=== PATIENT | female | born 1955 | race Asian ===

== ENCOUNTER 2023-12-07 20:16 | Inpatient (IN) | payer MEDICARE, MEDICAID ==
[~2023-12-07] VITALS: Ht 160 cm; Wt 85.7 kg
[2023-12-07] MEDS: SODIUM CHLORIDE 0.9% 1,000 ML IV ONE (22:38)
[2023-12-07 23:00] LABS: EOSINOPHILS % 0.3 % (0.0-5.0); HEMATOCRIT. 43.2 % (36.0-48.0); HEMOGLOBIN. 14.6 g/dL (12.0-16.0); LYMPHOCYTES % 29.8 % (20.0-50.0); MEAN CORPUSCULAR HEMOGLOBIN 30.5 pg (28.0-32.0); MEAN CORPUSCULAR HGB CONC 33.9 g/dL (31.0-37.0); MEAN CORPUSCULAR VOLUME 90.2 fL (81.0-99.0); MEAN PLATELET VOLUME 6.3 fl (7.4-10.4); NEUTROPHILS % 59.9 % (40.0-76.0); PLATELET 354 x1000/uL (130-400); RED BLOOD CELL COUNT 4.79 mill/uL (4.2-5.4); RED CELL DISTRIBUTION WIDTH 14.8 % (11.6-14.6)
[2023-12-07 23:15] LABS: CHLORIDE 85 mEq/L (98-107); POTASSIUM 4.7 mEq/L (3.5-5.1); SODIUM 122 mEq/L (136-145)
[2023-12-07 23:16] LABS: CALCIUM 9.1 mg/dL (8.7-10.4); CARBON DIOXIDE 32 mEq/L (21-32)
[2023-12-07 23:21] LABS: CREATININE 0.6 mg/dL (0.6-1.0); GLUCOSE 98 mg/dL (70-105); UREA NITROGEN BLOOD 8 mg/dL (9-23)
[2023-12-07 23:23] LABS: ALANINE AMINOTRANSFERASE < 7 IU/L (10-49); ALBUMIN 4.2 g/dL (3.2-4.8); ASPARTATE AMINOTRANSFERASE 16 IU/L (<34); BILIRUBIN DIRECT 0.1 mg/dL (<=3.0); BILIRUBIN TOTAL 0.4 mg/dL (0.1-1.0); PROTEIN TOTAL 6.9 g/dL (6.0-8.3); TROPONIN I HIGH SENSITIVITY 8 ng/L (3.0-34)
[2023-12-08] MEDS: CEFTRIAXONE 1GM/50ML 50 ML IV ONE (00:06)
[2023-12-08 00:09] LABS: TROPONIN I HIGH SENSITIVITY 7 ng/L (3.0-34)
[2023-12-08] MEDS: AZITHROMYCIN 500MG/250ML 250 ML IV ONE (00:46)
[2023-12-08 08:28] LABS: BASOPHILS % 0.3 % (0.0-2.0); EOSINOPHILS % 0.5 % (0.0-5.0); HEMATOCRIT. 43.2 % (36.0-48.0); HEMOGLOBIN. 14.6 g/dL (12.0-16.0); LYMPHOCYTES % 29.6 % (20.0-50.0); MEAN CORPUSCULAR HEMOGLOBIN 30.6 pg (28.0-32.0); MEAN CORPUSCULAR HGB CONC 33.7 g/dL (31.0-37.0); MEAN CORPUSCULAR VOLUME 90.7 fL (81.0-99.0); MONOCYTES % 9.7 % (2.0-8.0); NEUTROPHILS % 59.9 % (40.0-76.0); PLATELET 369 x1000/uL (130-400); RED BLOOD CELL COUNT 4.77 mill/uL (4.2-5.4); RED CELL DISTRIBUTION WIDTH 14.6 % (11.6-14.6)
[2023-12-08 08:32] LABS: CHLORIDE 89 mEq/L (98-107); POTASSIUM 4.6 mEq/L (3.5-5.1); SODIUM 124 mEq/L (136-145)
[2023-12-08 08:33] LABS: CALCIUM 8.9 mg/dL (8.7-10.4); CARBON DIOXIDE 33 mEq/L (21-32)
[2023-12-08 08:34] LABS: D-DIMER 0.54 mg/L FEU (<0.50); INR 1.1; PROTHROMBIN TIME 12.2 sec (9.6-11.0)
[2023-12-08 08:38] LABS: CREATININE 0.5 mg/dL (0.6-1.0); GLUCOSE 105 mg/dL (70-105); UREA NITROGEN BLOOD 7 mg/dL (9-23)
[2023-12-08 08:45] LABS: T4 FREE 1.49 ng/dL (0.89-1.76); THYROID STIMULATING HORMONE 1.11 uIU/mL (0.55-4.78)
[2023-12-08] MEDS: SODIUM CHLORIDE 0.9% 1,000 ML IV SCH (09:12)
[2023-12-08] MEDS ORDERED: ACETAMINOPHEN 325MG TABLET PO PRN (10:30)
[2023-12-08] MEDS ORDERED: DIPHENHYDRAMINE 50MG/ML VIAL IV PRN (10:30)
[2023-12-08] MEDS ORDERED: ONDANSETRON HCL 4MG/2ML INJ IV PRN (10:30)
[2023-12-08 11:03] VITALS: BP 158/49; PULSE 57; RESP 18; TEMP 95.9
[2023-12-08 12:38] VITALS: BP 158/49; PULSE 60; RESP 16; TEMP 96.8
[2023-12-08] MEDS: FUROSEMIDE 40MG/4ML VIAL IV SCH (13:42)
[2023-12-08 16:00] VITALS: BP 119/44; PULSE 60; RESP 18; TEMP 98
[2023-12-08 20:00] VITALS: BP 140/68; PULSE 72; RESP 19; TEMP 97.4
[2023-12-09] VITALS: BP 109/55; PULSE 67; RESP 19; TEMP 97.5
[2023-12-09 04:00] VITALS: BP 147/70; PULSE 74; RESP 20; TEMP 97.1
[2023-12-09 07:40] LABS: CHLORIDE 91 mEq/L (98-107); POTASSIUM 4.2 mEq/L (3.5-5.1); SODIUM 131 mEq/L (136-145)
[2023-12-09 07:41] LABS: CALCIUM 9.3 mg/dL (8.7-10.4); CARBON DIOXIDE 35 mEq/L (21-32)
[2023-12-09 07:43] LABS: BASOPHILS % 0.8 % (0.0-2.0); EOSINOPHILS % 0.6 % (0.0-5.0); HEMATOCRIT. 44.5 % (36.0-48.0); HEMOGLOBIN. 14.9 g/dL (12.0-16.0); LYMPHOCYTES % 19.2 % (20.0-50.0); MEAN CORPUSCULAR HEMOGLOBIN 30.7 pg (28.0-32.0); MEAN CORPUSCULAR HGB CONC 33.4 g/dL (31.0-37.0); MEAN CORPUSCULAR VOLUME 91.8 fL (81.0-99.0); MEAN PLATELET VOLUME 6.4 fl (7.4-10.4); MONOCYTES % 10.5 % (2.0-8.0); NEUTROPHILS % 68.9 % (40.0-76.0); PLATELET 360 x1000/uL (130-400); RED BLOOD CELL COUNT 4.85 mill/uL (4.2-5.4); RED CELL DISTRIBUTION WIDTH 15.3 % (11.6-14.6); WHITE BLOOD COUNT 7.2 x1000/uL (4.5-11.0)
[2023-12-09 07:46] LABS: CREATININE 0.7 mg/dL (0.6-1.0); GLUCOSE 107 mg/dL (70-105); UREA NITROGEN BLOOD 12 mg/dL (9-23)
[2023-12-09 08:00] VITALS: BP 136/73; PULSE 79; RESP 18; TEMP 97
[2023-12-09 12:00] VITALS: BP 138/76; PULSE 82; RESP 18; TEMP 97.7
[2023-12-09 13:11] LABS: CLARITY URINE CLEAR (CLEAR); COLOR URINE YELLOW (YELLOW); GLUCOSE URINE NEGATIVE (NEGATIVE); KETONES URINE NEGATIVE (NEGATIVE); LEUKOCYTE ESTERASE URINE NEGATIVE (NEGATIVE); NITRITE URINE NEGATIVE (NEGATIVE); OCCULT BLOOD URINE NEGATIVE (NEGATIVE); PROTEIN URINE NEGATIVE (NEGATIVE); SPECIFIC GRAVITY URINE 1.004 (1.005-1.030); UROBILINOGEN URINE 0.2 E.U./dL (0.2-1.0)
[2023-12-09 16:00] VITALS: BP 134/79; PULSE 92; RESP 18; TEMP 97.6
[2023-12-09 20:00] VITALS: BP 169/68; PULSE 92; RESP 16; TEMP 97.7
[2023-12-10] VITALS (8 sets, daily range): BP systolic 121–158; BP diastolic 51–105; PULSE 70–93; RESP 16–19; TEMP 96–97.9
[2023-12-11] VITALS: BP 148/78; PULSE 86; RESP 19; TEMP 98.4
[2023-12-11 04:00] VITALS: BP 147/72; PULSE 74; RESP 19; TEMP 97.5
[2023-12-11 05:46] VITALS: BP 147/72; PULSE 74; TEMP 97.5; O2SAT 95
[2023-12-11 08:00] VITALS: BP 127/63; PULSE 78; RESP 18; TEMP 97.3
== END 2023-12-11 09:45 | DRG 640 ==
LOC: ER 20:16 → 7EST 12-08 00:03
PROVIDERS: ADMIT Internal Medicine; ATTEND Internal Medicine
DX: E87.1 Hypo-osmolality and hyponatremia (principal); J96.01 Acute respiratory failure with hypoxia; J44.1 Chronic obstructive pulmonary disease with (acute) exacerbation; K42.9 Umbilical hernia without obstruction or gangrene; E11.9 Type 2 diabetes mellitus without complications; I10 Essential (primary) hypertension; R00.1 Bradycardia, unspecified; E87.8 Other disorders of electrolyte and fluid balance, not elsewhere classified; F20.9 Schizophrenia, unspecified; K21.9 Gastro-esophageal reflux disease without esophagitis
CPT/HCPCS: 36415; 71045; 80048; 80076; 81003; 82533; 83605; 83880; 83930; 83935; 84295; 84439; 84443; 84481; 84484; 85025; 85379; 93005; 99291; J0456; J0696; J1940; J7030

== ENCOUNTER 2024-01-22 18:36 | Inpatient (IN) | payer MEDICARE, MEDICAID ==
[~2024-01-22] VITALS: Ht 160 cm; Wt 89.4 kg
[2024-01-22 18:40] VITALS: RESP 26
[2024-01-22] MEDS: ASPIRIN 81MG TABLET PO ONE (18:58)
[2024-01-22] MEDS: METHYLPREDNISOLONE SOD SUCC 125MG/2ML (ACT-O-VIAL) IV STA (18:58)
[2024-01-22 19:06] LABS: CARBON DIOXIDE 26 mEq/L (21-32); CHLORIDE 85 mEq/L (98-107); POTASSIUM 5.9 mEq/L (3.5-5.1)
[2024-01-22 19:07] LABS: CALCIUM 7.7 mg/dL (8.7-10.4)
[2024-01-22 19:11] LABS: CREATININE 0.6 mg/dL (0.6-1.0)
[2024-01-22 19:12] LABS: GLUCOSE 156 mg/dL (70-105); TROPONIN I HIGH SENSITIVITY 10 ng/L (3.0-34); UREA NITROGEN BLOOD 13 mg/dL (9-23)
[2024-01-22 19:14] LABS: ALANINE AMINOTRANSFERASE 18 IU/L (10-49); ALBUMIN 3.8 g/dL (3.2-4.8); ASPARTATE AMINOTRANSFERASE 46 IU/L (<34); BILIRUBIN DIRECT 0.1 mg/dL (<=3.0); BILIRUBIN TOTAL 0.4 mg/dL (0.1-1.0)
[2024-01-22 19:16] LABS: BG BASE EXCESS 3.4 mmol/L (-2.0-3.0); BG CARBOXYHEMOGLOBIN 5.4 % (0.5-1.5); BG DEOXYHEMOGLOBIN 0.3 % (0.0-5.0); BG FRACTION INSPIRED OXYGEN 100; BG HCO3 ACT 33.7 mmol/L (21.0-28.0); BG OXYGEN SATURATION 99.7 % (94.0-98.0); BG OXYHEMOGLOBIN 94.3 % (94.0-98.0); BG PCO2 78.9 mmHg (32.0-45.0); BG PH 7.249 (7.350-7.450); BG PO2 423.7 mmHg (83.0-108.0); BG SAMPLE SITE RIGHT RADIAL; BG VENT MODE MASK - BIPAP
[2024-01-22 19:22] VITALS: RESP 22
[2024-01-22 19:26] LABS: SODIUM 115 mEq/L (136-145)
[2024-01-22 19:54] VITALS: RESP 21
[2024-01-22] MEDS: IPRATROPIUM BROMIDE (0.02%) 0.5MG/2.5ML NEB HHN STA (19:54)
[2024-01-22] MEDS: ALBUTEROL (0.083%) 2.5MG/3ML NEB HHN STA (19:54)
[2024-01-22 20:14] LABS: INR 1.1; PARTIAL THROMBOPLASTIN TIME 27.2 sec (23.4-31.0); PROTHROMBIN TIME 12.4 sec (9.6-11.0)
[2024-01-22 20:23] LABS: BASOPHILS % 0.2 % (0.0-2.0); EOSINOPHILS % 0.2 % (0.0-5.0); HEMATOCRIT. 45.2 % (36.0-48.0); HEMOGLOBIN. 14.9 g/dL (12.0-16.0); LYMPHOCYTES % 10.5 % (20.0-50.0); MEAN CORPUSCULAR HEMOGLOBIN 28.5 pg (28.0-32.0); MEAN CORPUSCULAR VOLUME 86.5 fL (81.0-99.0); MEAN PLATELET VOLUME 6.2 fl (7.4-10.4); MONOCYTES % 4.9 % (2.0-8.0); NEUTROPHILS % 84.2 % (40.0-76.0); PLATELET 344 x1000/uL (130-400); RED BLOOD CELL COUNT 5.23 mill/uL (4.2-5.4); RED CELL DISTRIBUTION WIDTH 14.3 % (11.6-14.6)
[2024-01-22 20:43] LABS: BG BASE EXCESS 5.1 mmol/L (-2.0-3.0); BG CARBOXYHEMOGLOBIN 4.5 % (0.5-1.5); BG DEOXYHEMOGLOBIN 0.9 % (0.0-5.0); BG FRACTION INSPIRED OXYGEN 50; BG HCO3 ACT 36.1 mmol/L (21.0-28.0); BG OXYGEN SATURATION 99.1 % (94.0-98.0); BG OXYHEMOGLOBIN 94.6 % (94.0-98.0); BG PCO2 84.5 mmHg (32.0-45.0); BG PH 7.249 (7.350-7.450); BG PO2 152.6 mmHg (83.0-108.0); BG SAMPLE SITE RIGHT RADIAL; BG TOTAL HEMOGLOBIN 16.4 g/dL (12.0-16.0); BG VENT MODE MASK - BIPAP
[2024-01-22 20:45] VITALS: RESP 22
[2024-01-22] MEDS ORDERED: PROPOFOL 10MG/ML 100ML 100 ML IV STA (20:48)
[2024-01-22] MEDS ORDERED: ETOMIDATE 2MG/ML 10ML VIAL IV ONE (21:00)
[2024-01-22] MEDS ORDERED: SUCCINYLCHOLINE CHLORIDE 200MG/10ML IV ONE (21:00)
[2024-01-22] MEDS ORDERED: ACETAMINOPHEN 325MG TABLET PO PRN (21:30)
[2024-01-22] MEDS ORDERED: DIPHENHYDRAMINE 50MG/ML VIAL IV PRN (21:30)
[2024-01-22] MEDS ORDERED: ENOXAPARIN 40MG/0.4ML SYR SUBCUT SCH (21:30)
[2024-01-22] MEDS ORDERED: NA PHOS,M-B/NA PHOS,DI-BA ENEMA 118ML PR PRN (21:30)
[2024-01-22] MEDS ORDERED: INSULIN REGULAR (HUMULIN R) 1000UNITS/10ML VIAL IV ONE (21:30)
[2024-01-22] MEDS ORDERED: MAGNESIUM/ALUMINUM HYDROXIDE/SIMETHICONE 30ML UDC PO PRN (21:30)
[2024-01-22] MEDS ORDERED: DEXTROSE 50% WATER 50ML SYRINGE IV ONE (21:30)
[2024-01-22] MEDS ORDERED: SODIUM CHLORIDE 0.9% 1,000 ML IV SCH (21:30)
[2024-01-22] MEDS ORDERED: ONDANSETRON HCL 4MG/2ML INJ IV PRN (21:30)
[2024-01-22] MEDS ORDERED: PROPOFOL 10MG/ML 100ML 100 ML IV PRN (21:45)
[2024-01-22] MEDS: SODIUM CHLORIDE 3% 120 ML IV NR (22:03)
[2024-01-22] MEDS: MONTELUKAST SODIUM 10MG TABLET PO SCH (22:04)
[2024-01-22] MEDS: LORATADINE 10MG TABLET PO SCH (22:04)
[2024-01-22] MEDS: FAMOTIDINE 20MG/2ML VIAL IV SCH (22:04)
[2024-01-22] MEDS: SODIUM POLYSTYRENE SULFONATE 15 G/60 ML BOT PO NR (22:06)
[2024-01-22] MEDS: ENOXAPARIN 30MG/0.3ML SYR SUBCUT SCH (22:07)
[2024-01-22] MEDS: SODIUM BICARBONATE 8.4% 50MEQ/50ML SYR IV ONE (23:00)
[2024-01-22] MEDS: IPRATROPIUM/ALBUTEROL 0.5-3(2.5)MG/3ML NEB HHN SCH (23:41)
[2024-01-22 23:42] VITALS: RESP 24
[2024-01-23] VITALS (10 sets, daily range): BP systolic 133–146; BP diastolic 57–88; PULSE 77–90; RESP 14–23; TEMP 36.9474–36.974; O2SAT 92–98
[2024-01-23 00:47] LABS: CHLORIDE 81 mEq/L (98-107); POTASSIUM 4.4 mEq/L (3.5-5.1)
[2024-01-23 00:48] LABS: CALCIUM 9.1 mg/dL (8.7-10.4); CARBON DIOXIDE 34 mEq/L (21-32)
[2024-01-23 00:53] LABS: CREATININE 0.8 mg/dL (0.6-1.0); GLUCOSE 193 mg/dL (70-105)
[2024-01-23 00:54] LABS: TRIGLYCERIDE 52 mg/dL (0-150); UREA NITROGEN BLOOD 11 mg/dL (9-23)
[2024-01-23 00:55] LABS: LDL CHOLESTEROL 67 mg/dL (5-100)
[2024-01-23 00:56] LABS: CHOLESTEROL 131 mg/dL (<200); HDL CHOLESTEROL 47 mg/dL (>65)
[2024-01-23 00:58] LABS: THYROID STIMULATING HORMONE 0.73 uIU/mL (0.55-4.78)
[2024-01-23 01:27] LABS: SODIUM 117 mEq/L (136-145)
[2024-01-23] MEDS: METHYLPREDNISOLONE SOD SUCC 125MG/2ML (ACT-O-VIAL) IV SCH (01:35)
[2024-01-23 03:40] LABS: CLARITY URINE CLEAR (CLEAR); COLOR URINE YELLOW (YELLOW); GLUCOSE URINE NEGATIVE (NEGATIVE); KETONES URINE NEGATIVE (NEGATIVE); LEUKOCYTE ESTERASE URINE NEGATIVE (NEGATIVE); NITRITE URINE NEGATIVE (NEGATIVE); OCCULT BLOOD URINE NEGATIVE (NEGATIVE); PROTEIN URINE 1+ (NEGATIVE); SPECIFIC GRAVITY URINE 1.007 (1.005-1.030); UROBILINOGEN URINE 0.2 E.U./dL (0.2-1.0)
[2024-01-23 03:42] LABS: *AMPHETAMINES SCREEN URINE NEGATIVE (NEGATIVE); *BARBITURATES SCREEN URINE NEGATIVE (NEGATIVE); *BENZODIAZEPINES SCREEN URINE NEGATIVE (NEGATIVE); *COCAINE SCREEN URINE NEGATIVE (NEGATIVE); CANNABINOID URINE SCREEN NEGATIVE (NEGATIVE); ECSTASY MDMA SCREEN URINE NEGATIVE (NEGATIVE); METHADONE URINE SCREEN NEGATIVE (NEGATIVE); OPIATES URINE SCREEN NEGATIVE (NEGATIVE); PHENCYCLIDINE URINE SCREEN NEGATIVE (NEGATIVE)
[2024-01-23 04:01] LABS: RBC URINE NONE SEEN /hpf (0-2); WBC URINE 0-2 /hpf (0-2)
[2024-01-23 04:02] LABS: SQUAMOUS EPITHELIAL CELL URINE FEW /lpf (RARE/1+)
[2024-01-23 04:03] LABS: BACTERIA URINE NONE SEEN
[2024-01-23 04:14] LABS: BASOPHILS % 0.1 % (0.0-2.0); HEMATOCRIT. 50.7 % (36.0-48.0); HEMOGLOBIN. 16.2 g/dL (12.0-16.0); LYMPHOCYTES % 9.1 % (20.0-50.0); MEAN CORPUSCULAR HEMOGLOBIN 27.9 pg (28.0-32.0); MEAN CORPUSCULAR HGB CONC 31.9 g/dL (31.0-37.0); MEAN CORPUSCULAR VOLUME 87.4 fL (81.0-99.0); MONOCYTES % 1.5 % (2.0-8.0); NEUTROPHILS % 89.3 % (40.0-76.0); RED CELL DISTRIBUTION WIDTH 14.3 % (11.6-14.6)
[2024-01-23 04:29] LABS: CHLORIDE 88 mEq/L (98-107); POTASSIUM 4.7 mEq/L (3.5-5.1)
[2024-01-23 04:30] LABS: CALCIUM 8.8 mg/dL (8.7-10.4); CARBON DIOXIDE 33 mEq/L (21-32)
[2024-01-23 04:32] LABS: DIFFERENTIAL COMMENT 1
[2024-01-23 04:35] LABS: CREATININE 0.8 mg/dL (0.6-1.0); GLUCOSE 173 mg/dL (70-105); UREA NITROGEN BLOOD 9 mg/dL (9-23)
[2024-01-23 04:58] LABS: SODIUM 125 mEq/L (136-145)
[2024-01-23 08:22] LABS: MEAN PLATELET VOLUME 6.2 fl (7.4-10.4); PLATELET 289 x1000/uL (130-400)
[2024-01-23] MEDS: DEXTROSE 5% WATER 1,000 ML IV ONE (08:25)
[2024-01-23 08:38] LABS: CHLORIDE 83 mEq/L (98-107); POTASSIUM 5.1 mEq/L (3.5-5.1)
[2024-01-23 08:39] LABS: CALCIUM 9.2 mg/dL (8.7-10.4); CARBON DIOXIDE 31 mEq/L (21-32)
[2024-01-23 08:44] LABS: CREATININE 0.7 mg/dL (0.6-1.0); GLUCOSE 169 mg/dL (70-105); UREA NITROGEN BLOOD 6 mg/dL (9-23)
[2024-01-23 08:46] LABS: BG BASE EXCESS 6.8 mmol/L (-2.0-3.0); BG CARBOXYHEMOGLOBIN 2.2 % (0.5-1.5); BG DEOXYHEMOGLOBIN 4.4 % (0.0-5.0); BG FRACTION INSPIRED OXYGEN 35; BG HCO3 ACT 33.1 mmol/L (21.0-28.0); BG METHEMOGLOBIN 0.3 % (0.5-1.5); BG OXYGEN SATURATION 95.5 % (94.0-98.0); BG OXYHEMOGLOBIN 93.1 % (94.0-98.0); BG PCO2 52.6 mmHg (32.0-45.0); BG PH 7.417 (7.350-7.450); BG PO2 70.9 mmHg (83.0-108.0); BG SAMPLE SITE RIGHT RADIAL; BG TOTAL HEMOGLOBIN 16.4 g/dL (12.0-16.0); BG VENT MODE MASK - BIPAP
[2024-01-23 09:14] LABS: SODIUM 119 mEq/L (136-145)
[2024-01-23] MEDS ORDERED: DEXTROSE 50% WATER 50ML SYRINGE IV PRN (09:45)
[2024-01-23] MEDS: BLOOD SUGAR DIAGNOSTIC STRIP TEST SCH (12:43)
[2024-01-23] MEDS: INSULIN LISPRO 100 UNITS/ML SUBCUT SCH (13:04)
[2024-01-23] MEDS: NICOTINE 14MG PATCH TD SCH (18:43)
[2024-01-24] VITALS (14 sets, daily range): BP systolic 102–161; BP diastolic 54–81; PULSE 70–91; RESP 13–20; TEMP 36.00288–37.28076; O2SAT 89–100
[2024-01-24] MEDS: ACETAMINOPHEN 325MG TABLET PO PRN (01:04)
[2024-01-24 07:00] LABS: CALCIUM 9.1 mg/dL (8.7-10.4); CARBON DIOXIDE 36 mEq/L (21-32)
[2024-01-24 07:05] LABS: CREATININE 0.6 mg/dL (0.6-1.0); GLUCOSE 163 mg/dL (70-105); TRIGLYCERIDE 57 mg/dL (0-150); UREA NITROGEN BLOOD 9 mg/dL (9-23)
[2024-01-24 07:06] LABS: LDL CHOLESTEROL 76 mg/dL (5-100)
[2024-01-24 07:07] LABS: CHOLESTEROL 146 mg/dL (<200); HDL CHOLESTEROL 46 mg/dL (>65)
[2024-01-24 07:13] LABS: CHLORIDE 89 mEq/L (98-107); POTASSIUM 3.9 mEq/L (3.5-5.1); SODIUM 128 mEq/L (136-145)
[2024-01-24 07:50] LABS: BASOPHILS % 0.2 % (0.0-2.0); HEMATOCRIT. 44.6 % (36.0-48.0); LYMPHOCYTES % 7.3 % (20.0-50.0); MEAN CORPUSCULAR HGB CONC 33.7 g/dL (31.0-37.0); MEAN CORPUSCULAR VOLUME 86.1 fL (81.0-99.0); MEAN PLATELET VOLUME 6.5 fl (7.4-10.4); MONOCYTES % 5.1 % (2.0-8.0); NEUTROPHILS % 87.4 % (40.0-76.0); PLATELET 342 x1000/uL (130-400); RED BLOOD CELL COUNT 5.18 mill/uL (4.2-5.4); RED CELL DISTRIBUTION WIDTH 14.5 % (11.6-14.6); WHITE BLOOD COUNT 6.8 x1000/uL (4.5-11.0)
[2024-01-24] MEDS: CLONIDINE 0.1MG TABLET PO PRN (09:08)
[2024-01-24] MEDS: METHYLPREDNISOLONE SOD SUCC 40MG/ML (ACT-O-VIAL) IV SCH (21:06)
[2024-01-25] VITALS (15 sets, daily range): BP systolic 121–157; BP diastolic 66–84; PULSE 77–98; RESP 11–27; TEMP 36.33624–36.89184; O2SAT 90–98
[2024-01-25 05:57] LABS: CHLORIDE 90 mEq/L (98-107); POTASSIUM 4.2 mEq/L (3.5-5.1); SODIUM 128 mEq/L (136-145)
[2024-01-25 05:58] LABS: CARBON DIOXIDE 37 mEq/L (21-32)
[2024-01-25 05:59] LABS: CALCIUM 8.9 mg/dL (8.7-10.4)
[2024-01-25 06:03] LABS: CREATININE 0.8 mg/dL (0.6-1.0); GLUCOSE 288 mg/dL (70-105); UREA NITROGEN BLOOD 14 mg/dL (9-23)
[2024-01-25 06:06] LABS: HEMATOCRIT. 45.3 % (36.0-48.0); HEMOGLOBIN. 14.9 g/dL (12.0-16.0); MEAN CORPUSCULAR HEMOGLOBIN 29.7 pg (28.0-32.0); MEAN CORPUSCULAR VOLUME 89.9 fL (81.0-99.0); MEAN PLATELET VOLUME 6.2 fl (7.4-10.4); PHOSPHORUS 2.5 mg/dL (2.5-4.9); PLATELET 312 x1000/uL (130-400); RED BLOOD CELL COUNT 5.03 mill/uL (4.2-5.4); RED CELL DISTRIBUTION WIDTH 14.7 % (11.6-14.6); WHITE BLOOD COUNT 7.4 x1000/uL (4.5-11.0)
[2024-01-25 06:07] LABS: DIFFERENTIAL COMMENT 1
[2024-01-25] MEDS: MAGNESIUM 2 G PREMIX 50 ML IV NR (10:56)
[2024-01-25 11:54] LABS: PLATELET ESTIMATE NORMAL
[2024-01-25] MEDS: METHYLPREDNISOLONE SOD SUCC 40MG/ML (ACT-O-VIAL) IV SCH (21:00)
[2024-01-25] MEDS ORDERED: LORAZEPAM 2MG/ML INJ IV PRN (22:30)
[2024-01-26] VITALS (10 sets, daily range): BP systolic 136–159; BP diastolic 78–96; PULSE 71–90; RESP 13–20; TEMP 36.28068–37.16964; O2SAT 89–97
[2024-01-26 06:14] LABS: HEMATOCRIT. 48.8 % (36.0-48.0); HEMOGLOBIN. 15.6 g/dL (12.0-16.0); MEAN CORPUSCULAR HEMOGLOBIN 28.8 pg (28.0-32.0); MEAN CORPUSCULAR VOLUME 89.9 fL (81.0-99.0); MEAN PLATELET VOLUME 6.2 fl (7.4-10.4); PLATELET 321 x1000/uL (130-400); RED BLOOD CELL COUNT 5.43 mill/uL (4.2-5.4); RED CELL DISTRIBUTION WIDTH 14.4 % (11.6-14.6); WHITE BLOOD COUNT 13.2 x1000/uL (4.5-11.0)
[2024-01-26 06:40] LABS: CHLORIDE 90 mEq/L (98-107); POTASSIUM 5.1 mEq/L (3.5-5.1); SODIUM 128 mEq/L (136-145)
[2024-01-26 06:41] LABS: CALCIUM 9.1 mg/dL (8.7-10.4); CARBON DIOXIDE 35 mEq/L (21-32)
[2024-01-26 06:46] LABS: CREATININE 0.7 mg/dL (0.6-1.0); GLUCOSE 184 mg/dL (70-105); UREA NITROGEN BLOOD 11 mg/dL (9-23)
[2024-01-26 06:48] LABS: PHOSPHORUS 4.1 mg/dL (2.5-4.9)
[2024-01-26 06:58] LABS: DIFFERENTIAL COMMENT 1
[2024-01-26] MEDS: SODIUM ZIRCONIUM CYCLOSILICATE 10GM/PACKET PO NR (08:28)
[2024-01-26] MEDS ORDERED: BUDESONIDE 0.5MG/2ML NEB HHN SCH (15:30)
[2024-01-26] MEDS ORDERED: IPRATROPIUM/ALBUTEROL 0.5-3(2.5)MG/3ML NEB HHN SCH (17:00)
[2024-01-26] MEDS ORDERED: PREDNISONE 20MG TABLET PO SCH (21:00)
[2024-01-26 22:51] LABS: PLATELET ESTIMATE NORMAL
== END 2024-01-26 14:30 | DRG 140 ==
LOC: ER 18:36 → 5EST 20:40 → EDBEDREQTM 20:46 → EDBEDREQ 20:46 → EDBEDREQSVC 20:52 → 5EST 01-23 17:05
PROVIDERS: ADMIT Internal Medicine; ATTEND Internal Medicine
PROC: 5A09357 Assistance with Respiratory Ventilation, Less than 24 Consecutive Hours, Continuous Positive Airway Pressure (ICD-10-PCS; principal; 2024-01-22)
PROC: 5A09357 Assistance with Respiratory Ventilation, Less than 24 Consecutive Hours, Continuous Positive Airway Pressure (ICD-10-PCS; 2024-01-25)
DX: J44.1 Chronic obstructive pulmonary disease with (acute) exacerbation (principal); J96.21 Acute and chronic respiratory failure with hypoxia; E87.29 Other acidosis; E87.1 Hypo-osmolality and hyponatremia; E11.22 Type 2 diabetes mellitus with diabetic chronic kidney disease; D64.9 Anemia, unspecified; E86.0 Dehydration; D75.1 Secondary polycythemia; E86.1 Hypovolemia; N18.1 Chronic kidney disease, stage 1; E87.5 Hyperkalemia; F20.9 Schizophrenia, unspecified; E87.4 Mixed disorder of acid-base balance; K21.9 Gastro-esophageal reflux disease without esophagitis; J96.22 Acute and chronic respiratory failure with hypercapnia; Z91.199 Patient's noncompliance with other medical treatment and regimen due to unspecified reason; I12.9 Hypertensive chronic kidney disease with stage 1 through stage 4 chronic kidney disease, or unspecified chronic kidney disease; F17.210 Nicotine dependence, cigarettes, uncomplicated; Z20.822 Contact with and (suspected) exposure to COVID-19
CPT/HCPCS: 36415; 36600; 71045; 80048; 80061; 80076; 80305; 81003; 82375; 82805; 82962; 83036; 83735; 83880; 83930; 83935; 84100; 84295; 84443; 84484; 85025; 87426; 93005; 94640; 94660; 99291; J1650; J1815; J2919; J2920; J3475; J3490